=== PATIENT | female | born 1995 ===

== ENCOUNTER 2017-06-02 16:48 | Emergency (ER) | payer BC ==
[2017-06-02 19:11] LABS: ABS Basophils 0 10^3/ul (0-0.2); ABS Eosinophils 0 10^3/ul (0-0.6); ABS Lymphocytes 1.6 10^3/ul (1.0-4.8); ABS Monocytes 0.8 10^3/ul (0-0.8); ABS Nucleated RBC 0 10^3/ul; Eosinophil % 0.3 % (0-6); Hematocrit 44 % (35-47); Hemoglobin 15.1 g/dl (12.0-16.0); Lymphocyte % 15.5 % (25-47); Mean Corpuscular HGB Conc 35 g/dl (31-36); Mean Corpuscular Hemoglobin 31 pg (27-31); Mean Corpuscular Volume 89 fL (80-97); Mean Platelet Volume 9.1 um3 (7.4-10.4); Nucleated Red Blood Cells % 0; Platelet Count 258 10^3/ul (150-450); Red Blood Count 4.91 10^6/ul (4.0-5.4); Red Cell Distribution Width 13 % (10.5-15); White Blood Count 10.5 10^3/ul (3.5-10.8)
[2017-06-02 19:26] LABS: EGFR Non-African American 76.6 (>60)
--- NOTE | 2017-06-02 20:06 | ED ---
Syncope/Near Syncope - HPI Summary HPI Summary: 21-year-old female presents with syncopal episode today. She states that she has history of syncope. She states that syncope is usually vasovagal or orthostatic. She states she was working in the kitchen with the head blowing in her face. She states that she felt dizzy so she sat down. She states after she sat down she passed out and landed onto the floor on her left side of her face and on her left shoulder. She admits to left shoulder pain. She denies any numbness or tingling. She is right handed. She denies any nausea vomiting. She denies any change in vision. She states now she just feels weak. She denies any lightheadedness. She denies any midline tenderness of her neck. She denies any visual changes. She denies any photophobia. She denies any headache. She hasn't taking anything for her symptoms. She denies any chest pain shortness breath. She denies any bowel pain. - History Of Current Complaint Chief Complaint: EDSyncope Time Seen by Provider: 06/02/17 19:30 - Allergies/Home Medications Allergies/Adverse Reactions: Allergies Allergy/AdvReac Type Severity Reaction Status Date / Time No Known Allergies Allergy Verified 05/25/13 14:17 Home Medications: Home Medications Norethindr/Eth Estradiol(Nf) [Lo Loestrin Fe (NF)] 1 tab PO DAILY 06/02/17 [ History Confirmed 06/02/17] PMH/Surg Hx/FS Hx/Imm Hx Endocrine/Hematology History: Denies: Hx Anticoagulant Therapy Cardiovascular History: Denies: Hx Myocardial Infarction Infectious Disease History: No Infectious Disease History: Denies: Traveled Outside the [place] in Last 30 Days - Family History Known Family History: Positive: Other - no fam hx of syncope - Social History Alcohol Use: Rare Substance Use Type: Reports: None Smoking Status (MU): Never Smoked Tobacco Review of Systems Negative: Fever Negative: Chest Pain Negative: Shortness Of Breath Positive: Myalgia - left shoulder pain Positive: Syncope All Other Systems Reviewed And Are Negative: Yes Physical Exam Triage Information Reviewed: Yes Vital Signs On Initial Exam: Initial Vitals Temp Pulse Resp BP Pulse Ox 97.6 F 74 16 116/61 100 06/02/17 16:56 06/02/17 16:56 06/02/17 16:56 06/02/17 16:56 06/02/17 16:56 Vital Signs Reviewed: Yes Appearance: Positive: Well-Appearing Skin: Positive: Warm, Dry, Other - ecchymosis to left shoulder Head/Face: Positive: Normal Head/Face Inspection, Other - No step off, raccoon eyes, baum sign Eyes: Positive: Normal, EOMI, STUART, Conjunctiva Clear ENT: Positive: Normal ENT inspection, Pharynx normal, TMs normal Respiratory/Lung Sounds: Positive: Clear to Auscultation, Breath Sounds Present Cardiovascular: Positive: Normal, RRR Abdomen Description: Positive: Nontender, Soft Bowel Sounds: Positive: Present Musculoskeletal: Positive: Strength/ROM Intact - left shoulder, Other - tenderness left shoulder, good pulses, capillary refill<2 secs Neurological: Positive: Sensory/Motor Intact, Alert, Oriented to Person Place, Time, CN Intact II-III Psychiatric: Positive: Normal Diagnostics - Vital Signs Vital Signs Temp Pulse Resp BP Pulse Ox 06/02/17 18:06 97.6 F 72 18 128/75 100 06/02/17 16:56 97.6 F 74 16 116/61 100 - Laboratory Lab Results: Lab Results 06/02/17 06/02/17 06/02/17 Range/Units 18:58 18:58 18:58 WBC 10.5 (3.5-10.8) 10^3/ul RBC 4.91 (4.0-5.4) 10^6/ul Hgb 15.1 (12.0-16.0) g/dl Hct 44 (35-47) % MCV 89 (80-97) fL MCH 31 (27-31) pg MCHC 35 (31-36) g/dl RDW 13 (10.5-15) % Plt Count 258 (150-450) 10^3/ul MPV 9.1 (7.4-10.4) um3 Neut % (Auto) 76.7 (38-83) % Lymph % (Auto) 15.5 L (25-47) % [place] % (Auto) 7.2 H (0-7) % Eos % (Auto) 0.3 (0-6) % Baso % (Auto) 0.3 (0-2) % Absolute Neuts (auto) 8.0 H (1.5-7.7) 10^3/ul Absolute Lymphs (auto) 1.6 (1.0-4.8) 10^3/ul Absolute Monos (auto) 0.8 (0-0.8) 10^3/ul Absolute Eos (auto) 0 (0-0.6) 10^3/ul Absolute Basos (auto) 0 (0-0.2) 10^3/ul Absolute Nucleated RBC 0 10^3/ul Nucleated RBC % 0 Sodium 141 (139-145) mmol/L Potassium 4.4 (3.5-5.0) mmol/L Chloride 104 (101-111) mmol/L Carbon Dioxide 29 (22-32) mmol/L Anion Gap 8 (2-11) mmol/L BUN 17 (6-24) mg/dL Creatinine 0.91 (0.51-0.95) mg/dL Est GFR ( Amer) 98.5 (>60) Est GFR (Non-Af Amer) 76.6 (>60) BUN/Creatinine Ratio 18.7 (8-20) Glucose 95 (70-100) mg/dL Lactic Acid 1.3 (0.5-2.0) mmol/L Calcium 10.0 (8.6-10.3) mg/dL Magnesium 2.3 (1.9-2.7) mg/dL Total Bilirubin 0.30 (0.2-1.0) mg/dL AST 15 (13-39) U/L ALT 10 (7-52) U/L Alkaline Phosphatase 49 (34-104) U/L Troponin I 0.00 (<0.04) ng/mL Total Protein 8.1 (6.4-8.9) g/dL Albumin 4.8 (3.2-5.2) g/dL Globulin 3.3 (2-4) g/dL Albumin/Globulin Ratio 1.5 (1-3) TSH 0.91 (0.34-5.60) mcIU/mL Beta HCG, Quant < 0.60 mIU/mL Result Diagrams: 06/02/17 18:58 06/02/17 18:58 Lab Statement: Any lab studies that have been ordered have been reviewed, and results considered in the medical decision making process. - Radiology shoulder Xray Interpretation: No Acute Changes Radiology Interpretation Completed By: Radiologist Course/Dx Course Of Treatment: 21-year-old female presents with syncopal episode today. She states that she has history of syncope. She states that syncope is usually vasovagal or orthostatic. She states she was working in the kitchen with the head blowing in her face. She states that she felt dizzy so she sat down. She states after she sat down she passed out and landed onto the floor on her left side of her face and on her left shoulder. She admits to left shoulder pain. She denies any numbness or tingling. She is right handed. She denies any nausea vomiting. She denies any change in vision. She states now she just feels weak. She denies any lightheadedness. She denies any midline tenderness of her neck. She denies any visual changes. She denies any photophobia. She denies any headache. She hasn't taking anything for her symptoms. She denies any chest pain shortness breath. She denies any bowel pain. On exam normal neuro exam. No step off, no raccoon eyes or baum sign. No midline tenderness neck. Ecchymosis to left shoulder. She'll shoulder. labs within normal limits. X-ray shoulder normal. We'll have follow-up with primary. Patient understands agrees with plan. - Diagnoses Differential Diagnosis/HQI/PQRI: Positive: Hypoglycemia, Hypovolemia, Vasovagal Episode Provider Diagnoses: Syncope, Head injury, Left shoulder pain Discharge - Sign-Out/Discharge Documenting (check all that apply): Discharge - Discharge Plan Condition: Good Disposition: HOME Patient Education Materials: Syncope (ED), Head Injury (ED) Referrals: [facility] [Primary Care Provider] - Additional Instructions: Drink plenty of fluids Eat small snacks as tolerated Take tyenlol or ibuprofen every 6 hours as needed for pain Follow up with [facility] within 5 days about the head injury Return to ED if develop any new or worsening symptoms - Billing Disposition and Condition Condition: GOOD Disposition: HOME
--- NOTE | 2017-06-02 20:17 | RAD ---
INDICATION: Left shoulder injury. TECHNIQUE: 4 views of the left shoulder were obtained. FINDINGS: The bones are in normal alignment. No fracture is seen. Joint spaces appear maintained. IMPRESSION: NO EVIDENCE OF FRACTURE.
[2017-06-02 20:19] LABS: Urine Appearance Cloudy; Urine Blood 1+ (Negative); Urine Color Yellow; Urine Ketones Negative (Negative); Urine Protein Negative (Negative); Urine Specific Gravity 1.026 (1.010-1.030); Urine Urobilinogen Negative (Negative)
[2017-06-02 20:46] VITALS: BP 107/81
== END 2017-06-02 20:46 | disposition home or self-care (01) ==
LOC: ED 16:48
DX: R55 Syncope and collapse (principal); S09.90XA Unspecified injury of head, initial encounter; M25.512 Pain in left shoulder; W19.XXXA Unspecified fall, initial encounter; Y92.89 Other specified places as the place of occurrence of the external cause
CPT/HCPCS: 36415; 80053; 81003; 81015; 83605; 83735; 84443; 84484; 84702; 85025; 87086; 93005; 99282